=== PATIENT | female | born 1990 | race Caucasian/White ===

== ENCOUNTER 2016-08-16 09:30 | Day surgery (SDC) | payer BC ==
[~2016-08-16 09:30] MED LIST: COLACE-T100 MG PO; COLACE100 M1 PO; COLACE100 MG; GLYCOLAX14 EA; IBUPROFEN800 MG PO; IRON1 TAB; LEXAPRO10 M1 PO; MIRALAX17 G2 PO; PERCOCET 5/3251 TAB PO; PRENATAL1 TAB PO; TYLENOL EXTRA500 M1 PO; VISTARIL50 MG PO; ZYVOX PO
[2016-08-16 10:23] LABS: BASO % 0.6 % (0-2); EOS % 10.1 % (0-7); EOSINOPHIL ABSOLUTE COUNT 0.3 tho/cmm (0.0-0.7); HCT-HEMATOCRIT 34.7 % (34.0-49.0); HGB-HEMOGLOBIN 11.5 gm/dl (12.0-15.5); LYMPH % 35.8 % (20-45); LYMPH ABSOLUTE COUNT 1.2 tho/cmm (0.8-4.5); MCH (MEAN CORPUSCULAR HGB) 31.3 pg (28.0-32.0); MCHC MEAN CORPUSCULAR HGB CONC 33.1 % (32.0-36.0); MCV (MEAN CELL VOLUME) 94.3 fl (82.0-96.0); MONO % 8.9 % (0-12); MONOCYTE ABSOLUTE COUNT 0.3 tho/cmm (0.0-1.2); NEUTROPHIL ABSOLUTE COUNT 1.5 tho/cmm (1.6-8.0); NEUTROPHIL-AUTOMATED 1.5 tho/cmm (1.6-8.0); NEUTROPHILS % 44.6 % (40-80); PLATELET COUNT 127 tho/cmm (150-450); RED BLOOD COUNT 3.68 mil/cmm (4.00-5.20); RED CELL DISTRIBUTION WIDTH 13.2 % (12.4-16.4); WHITE BLOOD COUNT 3.4 tho/cmm (4.0-10.0)
--- NOTE | 2016-08-16 20:15 | NUR ---
VIRTUAL CARE NOTE: ASSESSMENT DEFERRED, PT. SLEEPING.
[2016-08-17] MEDS ORDERED: NORCO 5-325 TA1 EACH PO (13:49)
--- NOTE | 2016-08-17 14:40 | NUR ---
VN DISCHARGE NOTE-DID DISCHARGE TEACHING FOR 518 WITH PATIENT AND SIG OTHER HARSH. REVIEWED ACTIVITY,INCISION CARE, MYRTLE BULB DRAIN CARE, MEDICATIONS, ETC PATIENT WAS ABLE TO DO TEACHBACK ON ALL THE ABOVE AND HAD NO FURTHER QUESTIONS OR CONCERNS.
== END 2016-08-17 15:55 ==
LOC: SRG 09:30 → SHSB 09:34 → ORW 13:34 → PACU 16:20 → 5WD 17:35
PROVIDERS: Surgery
PROC: 0HTT0ZZ Resection of Right Breast, Open Approach (ICD-10-PCS; principal; 2016-08-16)
PROC: 0HTU0ZZ Resection of Left Breast, Open Approach (ICD-10-PCS; 2016-08-16)
PROC: 07B60ZX Excision of Left Axillary Lymphatic, Open Approach, Diagnostic (ICD-10-PCS; 2016-08-16)
DX: C50.411 Malignant neoplasm of upper-outer quadrant of right female breast (principal); C77.3 Secondary and unspecified malignant neoplasm of axilla and upper limb lymph nodes; F41.9 Anxiety disorder, unspecified; F17.210 Nicotine dependence, cigarettes, uncomplicated; K59.09 Other constipation; Z87.19 Personal history of other diseases of the digestive system; Z79.899 Other long term (current) drug therapy; Z98.890 Other specified postprocedural states
CPT/HCPCS: A9520; J0690; J2250; J2270; J3010; J7030